=== PATIENT | male | born 1985 | race Caucasian/White ===

== ENCOUNTER 2025-06-03 10:51 | Emergency (ER) | payer OTHER, SELFPAY ==
[2025-06-03 10:59] VITALS: BP 173/103
[2025-06-03 11:39] VITALS: BP 148/110
[2025-06-03 11:40] VITALS: BMI 45.0
[2025-06-03 11:41] VITALS: BP 157/101
--- NOTE | 2025-06-03 12:02 | ED.GENMED ---
History of Present Illness
General
Chief Complaint: Male Genito-Urinary Symptoms
Time Seen by Provider: 06/03/25 11:44
Nursing documentation reviewed up to this point in time: agreed with
History of Present Illness
History of Present Illness:
40-year-old male presents to the ER for evaluation of painful swollen right testicle which has been getting progressively worse over the last 2 weeks. Patient denies any preceding injury or trauma. No new sexual partners. He denies penile
discharge, dysuria or rash. He denies abdominal discomfort in relation to his swollen testicle but admits that he has put on at least 50 pounds in the last 12 months. He has not had blood work done in over a year. He denies fevers or chills. No
flank pain. No vomiting. No change in bowel habits. No prior history of abdominal or genital surgery
Review of Systems
Review of Systems
Allergies reviewed?: Yes
Phy Exam
Physical Exam
Physical Exam:
Exam performed with nurse at bedside, patient is awake, alert, appears in no acute distress, head is NCAT, PERRL, EOMI mucous membranes moist, conjunctiva pink, abdomen is soft, obese, and nontender on palpation, no inguinal hernias or
lymphadenopathy appreciated, genital exam reveals patient to be circumcised, significant swelling and diffuse pain on palpation of right testicle, positive cremasteric reflex, left testicle is normal to exam, no genital lesions noted, no penile
discharge, extremities without edema, GCS is 15
Course
Orders/Labs/Results
Orders:
Orders
06/03/25 11:42
Scrotum US [US Scrotum] Urgent
Comment:
Reason For Exam: R testicle pain
06/03/25 11:51
Acetaminophen [Tylenol] 1,000 mg PO NOW STA
Ibuprofen [Motrin] 600 mg PO NOW STA
06/03/25 12:04
Basic Metabolic Panel Urgent
Complete Blood Count/With Diff Urgent
06/03/25 13:02
Urinalysis Reflex To Culture Urgent
Date Specimen was Collected: 06/03/25
Time Specimen was Collected: 12:58
Urine Microscopic Reflex Cult Urgent
Chlamydia/GC by PCR Urgent
PRATIK Source: Urine
Specimen Description:
Source:: URINE
Date Specimen was Collected: 06/03/25
Time Specimen was Collected: 12:58
06/03/25 13:45
Ketorolac [Toradol] 30 mg IV NOW STA
06/03/25 14:27
AFP Male/Tumor Marker Stat
HCG Male/Tumor Marker [S] Stat
LDH Stat
Abnormal Lab Results
06/03/25 06/03/25 06/03/25
12:04 13:02 14:27
Abs Immat Gran (auto) 0.1 H 10^3/uL
(0-0.05)
Absolute Neuts (auto) 7.5 H 10^3/uL
(1.4-6.5)
Absolute Monos (auto) 0.9 H 10^3/uL
(0.1-0.6)
Immature Gran % 0.6 H %
(0-0.5)
Lymphocytes % 19.4 L %
(20.5-51.1)
Chloride 109 H mmol/L
(98-107)
Carbon Dioxide 21 L mmol/L
(22-30)
Glucose 129 H mg/dl
(70-99)
Lactate Dehydrogenase 562 H U/L
(120-246)
Urine Albumin (Reflex) 1+ A
(Neg - Trace)
06/03/25 12:04
06/03/25 12:04
CBC within normal limits. Kidney function preserved. Mild elevation in glucose
Vital Signs
Initial and Last Documented VS:
Initial Vital Signs
Temp Pulse Resp BP Pulse Ox
98 F 131 16 173/103 98
06/03/25 10:59 06/03/25 10:59 06/03/25 10:59 06/03/25 10:59 06/03/25 10:59
Last Documented Vital Signs
Temp Pulse Resp BP Pulse Ox
98.1 F 102 20 151/90 97
06/03/25 14:27 06/03/25 14:30 06/03/25 14:30 06/03/25 14:26 06/03/25 14:26
MDM/Problems Addressed
Differential Diagnosis Includes:
Differential diagnosis to consider but not limited to epididymoorchitis, torsion, malignancy along with other etiologies considered
Chronic conditions affecting care:
Obesity
*Radiology
Radiology exam reviewed: radiology read reviewed (Complex enlargement to right testicle with evidence of poor blood flow)
*Pulse Oximetry
SaO2: 95
Oxygen Mode of Delivery: Room air
Patient hypoxic: no
*Critical Care Note
Total Time (30-74mins, 75-104mins- exclusive of procedures): Not Applicable
Update Note
Update Note:
Will obtain screening labs given elevated blood pressure, heart rate and weight gain. Will also give Tylenol and ibuprofen for discomfort while awaiting ultrasound and urinalysis. Patient agrees with plan at current
1340: Patient resting comfortably. I reviewed all test results with patient and on-call urologist, Dr. Foster. He will see patient in the emergency department for further care plan. Patient agrees with plan at current.
1552: Patient evaluated by urology who sent prescription to the pharmacy for the patient and had arranged for outpatient follow-up. Will discharge
ED Attending Note
-
Portions of this chart may have been created with voice recognition software.� Occasional wrong word or��sound alike� substitutions may have occurred due to the inherent limitations of voice recognition software.
Discharge Plan
Departure
Patient Disposition: Home (Routine Discharge)
Date of Disposition: 06/03/25
Time of Disposition: 15:46
Patient with high blood pressure during this ER visit?: Yes
Discharge Problem:
Enlarged testicle, Hypertension
Instructions: BLOOD PRESSURE
Prescriptions:
New
ketorolac 10 mg tablet
10 mg PO Q6H PRN (Reason: pain) Qty: 20 0RF
Rx Instructions:
maximum total duration of 5 days from all oral, intranasal, or parenteral formulations
levofloxacin 750 mg tablet
750 mg PO DAILY Qty: 14 0RF
Referrals:
Marek Cintron MD [Family Provider, Family Practice]
Dick Foster MD [Active, Urology]
Referral Note: call Friday for Friday appointment at 1230 PM
Activity Restrictions/Additional Instructions:
Please follow-up with Dr. Foster as discussed. Please also follow-up with your primary care physician for reevaluation of your blood pressure. Return to the ER for any concerns
Interventions
Interventions:
*Risk Screen - Suicide Last Done: 06/03/25 10:59
*General Assessment Last Done: 06/03/25 11:41
*Neglect/Abuse Screening Last Done: 06/03/25 10:59
*ED- Fall Risk Assessment Last Done: 06/03/25 11:41
*ED COVID-19 Vaccine History Last Done: 06/03/25 11:41
*ED Influenza Vaccine History Last Done: 06/03/25 11:41
ED-Male Genitourinary Assessment Last Done: 06/03/25 11:41
Discharge Date and Time
Print Language: GREENLANDIC
[2025-06-03] MEDS: MOTRIN 600 MG PO (12:12)
[2025-06-03] MEDS: TYLENOL 1000 MG PO (12:13)
[2025-06-03 12:30] LABS: Hematocrit 43.7 % (39.0-52.0); Hemoglobin 14.9 g/dL (13.0-18.0); Mean Corp Hgb Conc. 34.1 g/dL (33.0-37.0); Mean Corpuscular Volume 88.3 fL (80.0-94.0); Nucleated Red Blood Cells % 0 % (-); Platelet Count 311 10^3/uL (130-400); Red Cell Dist. Width 12.4 % (11.5-14.5)
[2025-06-03 12:32] LABS: Blood Urea Nitrogen 19 mg/dl (9-20); Calcium 8.9 mg/dl (8.4-10.2); Carbon Dioxide 21 mmol/L (22-30); Chloride 109 mmol/L (98-107); Estimated Creatinine Clearance > 125 ml/min; Glucose 129 mg/dl (70-99); Potassium 4.0 mmol/L (3.5-5.1); Sodium 138 mmol/L (135-145); eGFR > 60.00
[2025-06-03 13:19] LABS: Urine Character Clear (Clear)
[2025-06-03 13:39] LABS: Urine Red Blood Cell 0-2 /HPF (0-2); Urine Urothelial Cell 0-2 /LPF (FEW)
[2025-06-03 13:40] LABS: Urine White Cell 0-2 /HPF (0-5)
[2025-06-03 14:26] VITALS: BP 151/90
--- NOTE | 2025-06-03 14:32 | CONS.URO ---
Consultation
-
Date/Time Consultation Performed: 06/03/2025 1530
Requesting Provider: ED
Performing Provider: Cristian
Reason for Consultation: right testis abnormality
Medical History
History of Present Illness
ED note: '40-year-old male presents to the ER for evaluation of painful swollen right testicle which has been getting progressively worse over the last 2 weeks. Patient denies any preceding injury or trauma.'
no F/C
weight gain
no dyspnea
Past Medical History
Past Medical History: Other (obesity)
Past Surgical History: None
Family History
Family History: Reviewed & Not Pertinent ('father had a benign testis thing')
Allergies/Home Medications
Allergies
Allergy/AdvReac Type Severity Reaction Status Date / Time
No Known Allergies Allergy Unverified 06/03/25 10:59
Review of Systems
-
Constitutional: Reports No Symptoms
Respiratory: Reports No Symptoms
Cardiac: Reports No Symptoms
Physical Exam
Vital Signs
Vital Signs
Temp Pulse Resp BP Pulse Ox
98.1 F 102 20 151/90 97
06/03/25 14:27 06/03/25 14:30 06/03/25 14:30 06/03/25 14:26 06/03/25 14:26
Lab / Testing Results
Laboratory Results
06/03/25 12:04
06/03/25 12:04
Physical Exam
adult male on ED bed
General: No Apparent Distress
HEENT: Normocephalic (bald)
GI: Soft, Non Tender, Non Distended and Other (slight inguinal tenderness to palpation on the right)
Genito-urinary: Other (Right hemiscrotum is enlarged and erythematous; contents are tender and difficult to assess due to pain and fluid; left testis is palpably normal)
Skin: Warm
Neuro: Awake and Alert
Hematologic/Lymphatic: No Lymphadenopathy
Psych: Calm
Assessment / Plan
-
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
Plan:
discharge to home
Ketorolac 10 mg po q 6h prn
Levofloxacin 500 mg po qd x 14 d
office visit on Friday06/07/25 -- will review response to abx and tumors marker results
posted for surgery on Friday 06/08 if cancer appears likely diagnosis
Data Reviewed
-
Ultrasound: Image personally visualized and interpreted (Enlarged right testis with heterogeneous internal echotexture as described. Findings raise concern for mass/neoplasia. As a differential consideration, findings could possibly represent
so-called missed testicular torsion with resultant internal heterogeneity of right testicular echotexture. No sig)
[2025-06-03 15:13] LABS: LDH 562 U/L (120-246)
[2025-06-03 16:02] LABS: AFP Male/Tumor Marker 11.1 ng/ml
[2025-06-03 16:40] VITALS: BP 138/83
[2025-06-07 10:31] LABS: HCG Male/Tumor Marker <1 IU/L (0-3)
== END 2025-06-03 16:55 | disposition home or self-care (01) ==
LOC: EMR 10:51
PROVIDERS: EMERGENCY PHYSICIAN Emergency Medicine; FAMILY PHYSICIAN Family Medicine; OTHER PHYSICIAN Specialist
DX: N44.8 Other noninflammatory disorders of the testis (principal); N50.811 Right testicular pain; I10 Essential (primary) hypertension; E66.9 Obesity, unspecified
CPT/HCPCS: 99284; 96374; 76870; 80048; 81003; 81015; 82105; 83615; 84702; 85025; 87491; 87591; 93976

== ENCOUNTER → 2025-06-20 08:00 | Outpatient (REF) | payer OTHER, SELFPAY | LOC: MRI 08:00 | PROVIDERS: ATTENDING PHYSICIAN Specialist | DX: N50.9 Disorder of male genital organs, unspecified (principal) | CPT/HCPCS: 72197; A9575 ==

== ENCOUNTER 2025-06-22 06:35 | Day surgery (SDC) | payer OTHER, SELFPAY ==
[2025-06-22] VITALS (11 sets, daily range): BP systolic 120–157; BP diastolic 75–106; BMI 44.5
--- NOTE | 2025-06-22 12:40 | PTCARENOTE ---
Patient states that he drank 2 beers at 0200, Elyssa. Dr. Lala made aware. Dr. Lala also made aware that patients BP and HR are elevated. Will monitor patient.
[2025-06-22] MEDS: NORMOSOL-R/PLASMALYTE-A 1000 IV (12:42)
[2025-06-22] MEDS: DILAUDID 0.25 MG IV (16:43)
[2025-06-22] MEDS: DILAUDID 0.5 MG IV ×2 (17:01→17:15)
[2025-06-22] MEDS: ROXICODONE 10 MG PO (18:33)
== END 2025-06-22 18:39 | disposition home or self-care (01) ==
LOC: SDS 06:35
PROVIDERS: ATTENDING PHYSICIAN Specialist
DX: N50.9 Disorder of male genital organs, unspecified (principal); C62.11 Malignant neoplasm of descended right testis
CPT/HCPCS: 54530; 88309; 88341; 88342

== ENCOUNTER → 2025-07-20 08:09 | Outpatient (REF) | payer OTHER, SELFPAY | LOC: HWRAD 08:09 | PROVIDERS: ATTENDING PHYSICIAN Specialist | DX: C62.11 Malignant neoplasm of descended right testis (principal) | CPT/HCPCS: 70450 ==

== ENCOUNTER → 2025-07-22 11:43 | Outpatient (REF) | payer OTHER, SELFPAY | LOC: RAD 11:43 | PROVIDERS: ATTENDING PHYSICIAN Specialist | DX: C62.11 Malignant neoplasm of descended right testis (principal) | CPT/HCPCS: 71260; 74177; Q9967 ==

== ENCOUNTER → 2025-08-02 06:53 | Outpatient (REF) | payer OTHER, SELFPAY | LOC: RSP 06:53 | PROVIDERS: ATTENDING PHYSICIAN Internal Medicine Hematology & Oncology | DX: C62.11 Malignant neoplasm of descended right testis (principal) | CPT/HCPCS: 88738; 94010; 94727; 94729 ==